=== PATIENT | male | born 1995 | race Caucasian/White ===

== ENCOUNTER 2017-03-19 13:49 | Emergency (ER) | payer OTHER ==
[~2017-03-19 13:49] MED LIST: CYCL-36 PO; IBUP800 PO
[2017-03-19 13:51] VITALS: BP 149/67; PULSE 72; RESP 20; TEMP 98.4; O2SAT 97
--- NOTE | 2017-03-19 13:54 | PD ---
Physical Exam Time Seen by Provider: 13:54 Narrative 22 y/o male here with Lower back pain after doing yardwork yesterday. Vital signs reviewed. Seen at triage desk. Awaiting bed placement. Data Data Last Documented VS Vital Signs Date Time Temp Pulse Resp B/P (MAP) Pulse Ox O2 Delivery O2 Flow Rate FiO2 03/19/17 13:51 98.4 72 20 149/67 (94) 97 Room Air [facility] Medical Record Reviewed: Yes Supervised Visit with CARLOS: Alan Kam Mar 19, 2017 13:54
[2017-03-19] MEDS ORDERED: IBUP800T23 PO (15:59)
[2017-03-19] MEDS ORDERED: CYCL1TAB29 PO (15:59)
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
== END 2017-03-19 16:11 | disposition home or self-care (01) ==
LOC: NEPK 13:49
DX: S29.019A Strain of muscle and tendon of unspecified wall of thorax, initial encounter (principal); M79.1 Myalgia; F90.9 Attention-deficit hyperactivity disorder, unspecified type; J45.909 Unspecified asthma, uncomplicated; F17.200 Nicotine dependence, unspecified, uncomplicated; Y93.H2 Activity, gardening and landscaping
CPT/HCPCS: 99283